=== PATIENT | male | born 1980 | race Caucasian/White ===

== ENCOUNTER 2017-10-08 17:06 | Emergency (ER) | payer SELFPAY ==
--- NOTE | 2017-10-08 17:33 | EDM.PDOC ---
ED HPI GENERAL MEDICAL PROBLEM - General Stated Complaint: TROUBLE BREATHING/CHEST PAIN Time Seen by Provider: 10/08/17 17:20 Source of Information: Reports: Patient History Limitations: Reports: No Limitations - History of Present Illness INITIAL COMMENTS - FREE TEXT/NARRATIVE: HISTORY AND PHYSICAL: History of present illness: Patient is a 37-year-old male who presents to the emergency room today with complaints of chest pain that radiates throughout left and right chest wall since Friday. He states that the pain has been constant and is reproducible with palpation. He is here today as "I just can't take it". Denies any shortness of breath, diaphoresis, nausea, vomiting or diarrhea/constipation. Denies any caffeine, drug or alcohol abuse. Review of systems: As per history of present illness and below otherwise all systems reviewed and negative. Past medical history: As per history of present illness and as reviewed below otherwise noncontributory. Surgical history: As per history of present illness and as reviewed below otherwise noncontributory. Social history: No reported history of drug or alcohol abuse. Family history: As per history of present illness and as reviewed below otherwise noncontributory. Physical exam: Gen.: Well-developed and well-nourished 37-year-old male. Alert and oriented. Nontoxic appearing and in no acute distress. HEENT: Atraumatic, normocephalic, pupils reactive, negative for conjunctival pallor or scleral icterus, mucous membranes moist, throat clear, neck supple, nontender, trachea midline. Lungs: Clear to auscultation, breath sounds equal bilaterally, this pain is reproducible with palpation to the right and left anterior chest triana. Heart: S1S2, regular rate and rhythm Abdomen: Soft, nondistended, nontender. Negative for masses or hepatosplenomegaly. Negative for costovertebral tenderness. Pelvis: Stable nontender. Genitourinary: Deferred. Rectal: Deferred. Extremities: Atraumatic, moves all extremities per self without difficulty or deficits, negative for cords or calf pain. Neurovascular unremarkable. Neuro: Awake, alert, oriented. Cranial nerves II through XII unremarkable. Cerebellum unremarkable. Motor and sensory unremarkable throughout. Exam nonfocal. Patient took 324 mg of aspirin prior to arrival. Denies any history of heart disease, hypertension or elevated cholesterol. He does not take any prescribed medications. Routine cardiac exam will be completed. Labs are within normal limits, EKG shows normal sinus rhythm. Chest x-ray shows no evidence of pneumonia or infiltrates. Patient states that he is starting to feel "achy" all over and would like something for his pain. Toradol IM and DuoNeb will be done at this time. Patient adamant that he needs something for his cough and symptoms. Will treat with Z-Marcial, albuterol and Tessalon Perles. Encouraged him to follow up with his primary care provider. He voices understanding and is agreeable to plan of care. Denies any further questions at this time. Diagnostics: CBC, CMP, troponin, EKG, chest x-ray Therapeutics: Duo neb, Toradol IM Impression: Bronchitis Plan: 1. Please take the antibiotic as directed. Use the inhaler, 1-2 puffs every 6 hours as needed for difficulty breathing. 2. Supportive care measures such as Tylenol and/or ibuprofen as needed. Encourage fluids to prevent dehydration. 3. Follow-up with your primary care provider in the next couple days. Return to the ED as needed and as discussed. Definitive disposition and diagnosis as appropriate pending reevaluation and review of above. Onset Date: 10/03/17 Duration: Day(s): chest Pain Score (Numeric/FACES): 7 - Related Data Allergies Allergy/AdvReac Type Severity Reaction Status Date / Time Sulfa (Sulfonamide Allergy Tachycardia Verified 10/08/17 17:22 Antibiotics) Home Meds: Home Meds . [No Known Home Meds] 04/04/15 [History] Past Medical History - Past Health History Medical/Surgical History: Denies Medical/Surgical History HEENT History: Reports: None Cardiovascular History: Reports: None Respiratory History: Reports: None Gastrointestinal History: Reports: None Genitourinary History: Reports: None Musculoskeletal History: Reports: Other (See Below) Other Musculoskeletal History: staph infection Neurological History: Reports: None Psychiatric History: Reports: None Endocrine/Metabolic History: Reports: None Hematologic History: Reports: None Immunologic History: Reports: None Oncologic (Cancer) History: Reports: None Dermatologic History: Reports: None - Infectious Disease History Infectious Disease History: Reports: Chicken Pox, Other (See Below) Other Infectious Disease History: childhood - Past Surgical History Head Surgeries/Procedures: Reports: None HEENT Surgical History: Reports: None Cardiovascular Surgical History: Reports: None Respiratory Surgical History: Reports: None GI Surgical History: Reports: None Male Surgical History: Reports: None Endocrine Surgical History: Reports: None Neurological Surgical History: Reports: None Musculoskeletal Surgical History: Reports: Other (See Below) Oncologic Surgical History: Reports: None Dermatological Surgical History: Reports: Other (See Below) Social & Family History - Family History Family Medical History: Noncontributory - Tobacco Use Smoking Status *Q: Former Smoker Years of Tobacco use: 10 Packs/Tins Daily: 0.5 Used Tobacco, but Quit: Yes Month/Year Tobacco Last Used: 1 - Caffeine Use Caffeine Use: Reports: Coffee, Tea - Recreational Drug Use Recreational Drug Use: Yes Recreational Drug Type: Reports: Marijuana/Hashish Recreational Drug Use Frequency: Rarely ED ROS GENERAL - Review of Systems Review Of Systems: ROS reveals no pertinent complaints other than HPI. ED EXAM, GENERAL - Physical Exam Exam: See Below (See dictation) Course - Vital Signs Last Recorded V/S: Last Vital Signs Temp 96.9 F 10/08/17 17:22 Pulse 85 10/08/17 17:22 Resp 18 10/08/17 17:22 BP 131/80 10/08/17 17:22 Pulse Ox 94 L 10/08/17 17:22 - Orders/Labs/Meds Orders: Active Orders 24 hr Category Date Time Status EKG Documentation Completion [RC] STAT Care 10/08/17 17:20 Active RT Aerosol Therapy [RC] ASDIRECTED Care 10/08/17 18:58 Active Chest 1V Frontal [CR] Stat Exams 10/08/17 17:20 Taken Labs: Laboratory Tests 10/08/17 10/08/17 Range/Units 18:08 18:08 WBC 9.38 (4.0-11.0) K/uL RBC 4.90 (4.50-5.90) M/uL Hgb 15.9 (13.0-17.0) g/dL Hct 43.9 (38.0-50.0) % MCV 89.6 (80.0-98.0) fL MCH 32.4 H (27.0-32.0) pg MCHC 36.2 (31.0-37.0) g/dL RDW Std Deviation 39.7 (28.0-62.0) fl RDW Coeff of Sahil 12 (11.0-15.0) % Plt Count 173 (150-400) K/uL MPV 10.50 (7.40-12.00) fL Neut % (Auto) 61.9 (48.0-80.0) % Lymph % (Auto) 23.3 (16.0-40.0) % Emmet % (Auto) 14.4 (0.0-15.0) % Eos % (Auto) 0.2 (0.0-7.0) % Baso % (Auto) 0.2 (0.0-1.5) % Neut # (Auto) 5.8 H (1.4-5.7) K/uL Lymph # (Auto) 2.2 (0.6-2.4) K/uL Emmet # (Auto) 1.4 H (0.0-0.8) K/uL Eos # (Auto) 0.0 (0.0-0.7) K/uL Baso # (Auto) 0.0 (0.0-0.1) K/uL Nucleated RBC % 0.0 /100WBC Nucleated RBCs # 0 K/uL Sodium 136 (136-148) mmol/L Potassium 3.5 (3.5-5.1) mmol/L Chloride 102 (98-107) mmol/L Carbon Dioxide 24.3 (21.0-32.0) mmol/L BUN 13 (7.0-18.0) mg/dL Creatinine 0.9 (0.8-1.3) mg/dL Est Cr Clr Drug Dosing 118.29 mL/min Estimated GFR (MDRD) > 60.0 ml/min Glucose 97 (74-106) mg/dL Calcium 9.0 (8.5-10.1) mg/dL Total Bilirubin 0.6 (0.2-1.0) mg/dL AST 36 (15-37) IU/L ALT 66 H (14-63) IU/L Alkaline Phosphatase 105 (46-116) U/L Troponin I < 0.050 (0.000-0.056) ng/mL Total Protein 7.3 (6.4-8.2) g/dL Albumin 3.7 (3.4-5.0) g/dL Globulin 3.6 H (2.0-3.5) g/dL Albumin/Globulin Ratio 1.0 L (1.3-2.8) Meds: Medications Discontinued Medications Generic Name Dose Route Start Last Admin Trade Name Sharon PRN Reason Stop Dose Admin Albuterol/Ipratropium 3 ml 10/08/17 18:58 10/08/17 19:19 Duoneb 3.0-0.5 Mg/3 Ml NEB 10/08/17 18:59 3 ml ONETIME ONE Administration Ketorolac Tromethamine 60 mg 10/08/17 18:58 Toradol IM 10/08/17 18:59 ONETIME ONE Departure - Departure Time of Disposition: 19:24 Disposition: Home, Self-Care 01 Clinical Impression: Bronchitis - Discharge Information Instructions: Acute Bronchitis, Adult, [id number] Referrals: PCP,None [Primary Care Provider] - Additional Instructions: My general discharge The following information is given to patients seen in the emergency department who are being discharged to home. This information is to outline your options for follow-up care. We provide all patients seen in our emergency department with a follow-up referral. The need for follow-up, as well as the timing and circumstances, are variable depending upon the specifics of your emergency department visit. If you don't have a primary care physician on staff, we will provide you with a referral. We always advise you to contact your personal physician following an emergency department visit to inform them of the circumstance of the visit and for follow-up with them and/or the need for any referrals to a consulting specialist. The emergency department will also refer you to a specialist when appropriate. This referral assures that you have the opportunity for follow-up care with a specialist. All of these measure are taken in an effort to provide you with optimal care, which includes your follow-up. Under all circumstances we always encourage you to contact your private physician who remains a resource for coordinating your care. When calling for follow-up care, please make the office aware that this follow-up is from your recent emergency room visit. If for any reason you are refused follow-up, please contact the [facility] Emergency Department at and asked to speak to the emergency department charge nurse. [facility] [address] [place] [id number] 1. Please take the antibiotic as directed. Use the inhaler, 1-2 puffs every 6 hours as needed for difficulty breathing. 2. Supportive care measures such as Tylenol and/or ibuprofen as needed. Encourage fluids to prevent dehydration. 3. Follow-up with your primary care provider in the next couple days. Return to the ED as needed and as discussed. - My Orders Last 24 Hours: My Active Orders 10/08/17 17:20 EKG Documentation Completion [RC] STAT Chest 1V Frontal [CR] Stat 10/08/17 18:58 RT Aerosol Therapy [RC] ASDIRECTED - Assessment/Plan Last 24 Hours: My Active Orders 10/08/17 17:20 EKG Documentation Completion [RC] STAT Chest 1V Frontal [CR] Stat 10/08/17 18:58 RT Aerosol Therapy [RC] ASDIRECTED
[2017-10-08 18:42] LABS: CHLORIDE,CL 102 mmol/L (98-107); SODIUM,NA 136 mmol/L (136-148)
[2017-10-08] MEDS ORDERED: Ketorolac 60 MG/2 ML SDV IM ONE (18:58)
[2017-10-08] MEDS ORDERED: Albuterol/Ipratropium 3.0-0.5 MG/3 ML Neb Soln NEB ONE (18:58)
[2017-10-08 20:35] VITALS: BP 131/70
--- NOTE | 2017-10-09 10:40 | CR ---
EXAM DATE: 10/08/17 PATIENT'S AGE: 37 Patient: WILLI REECE Facility: [place], [place] Site . Site : [id number] Study: XRay Chest [id number]/[id number] 5:59:16 PM Ordering Physician: Doctor Terry Final Report: CHEST 1 VIEW AP INDICATION: Chest pain short of breath. IMPRESSION: Normal heart size and vascular pattern. Lungs are clear of focal opacities. No pneumothorax or pleural abnormality. Dictated by Yared Norman MD @ Oct 08 2017 6:24PM (Electronic Signature) Report Signed by Proxy. KETAN
== END 2017-10-08 20:04 | disposition home or self-care (01) ==
LOC: MW.ED 17:06
DX: J40 Bronchitis, not specified as acute or chronic (principal); Z88.2 Allergy status to sulfonamides; Z87.891 Personal history of nicotine dependence
CPT/HCPCS: 36415; 71045; 80053; 84484; 85025; 93005; 94640; 96372; 99284; J1885; 99283

== ENCOUNTER 2021-12-04 11:38 | Emergency (ER) | payer BC ==
[2021-12-04] MEDS ORDERED: Bacitracin Oint 1 GM U/D Packet TOP ONE (11:46)
[2021-12-04] MEDS ORDERED: Diphtheria,Pertussis(Acell),Tetanus Vaccine 0.5 ML Syringe IM ONE (11:46)
[2021-12-04] MEDS ORDERED: Lidocaine 1% PF 2 ML SDV INJECT ONE (11:46)
[2021-12-04] MEDS ORDERED: Lidocaine 1% 2 ML ONE (12:06)
[2021-12-04 12:54] VITALS: BP 129/77; PULSE 72
== END 2021-12-04 12:40 | disposition home or self-care (01) ==
LOC: MW.ED 11:38
DX: S61.211A Laceration without foreign body of left index finger without damage to nail, initial encounter (principal); Z23 Encounter for immunization; Z88.2 Allergy status to sulfonamides; W26.8XXA Contact with other sharp object(s), not elsewhere classified, initial encounter
CPT/HCPCS: 12002; 73140-26-F1; 73140-F1; 90471; 90715; 99283-25

== ENCOUNTER 2024-07-09 10:16 | Emergency (ER) | payer BC, OTHER ==
[2024-07-09 11:43] VITALS: BP 120/76; PULSE 72
[2024-07-09] MEDS: Acetaminophen/oxyCODONE 325-5 MG Tab PO ONE (12:17)
[2024-07-09] MEDS: Ondansetron 4 MG Tab.DIS PO ONE (12:17)
[2024-07-09] MEDS: Lidocaine 4% 1 each Patch TOP PRN (12:21)
== END 2024-07-09 12:30 | disposition home or self-care (01) ==
LOC: MW.ED 10:16
DX: S22.31XA Fracture of one rib, right side, initial encounter for closed fracture (principal); S63.501A Unspecified sprain of right wrist, initial encounter; M25.511 Pain in right shoulder; Z88.2 Allergy status to sulfonamides; Z79.899 Other long term (current) drug therapy; Z75.8 Other problems related to medical facilities and other health care; W00.0XXA Fall on same level due to ice and snow, initial encounter
CPT/HCPCS: 71101; 73020; 73100; 99283; A9270